=== PATIENT | female | born 1995 | race Caucasian/White ===

== ENCOUNTER 2017-10-11 20:49 | Emergency (ER) | payer MEDICAID | END 2017-10-11 22:08 | disposition home or self-care (01) | LOC: E/R 22:08 | DX: J02.9 Acute pharyngitis, unspecified (principal); J04.0 Acute laryngitis; R06.2 Wheezing | CPT/HCPCS: 99284; Z7502 ==

== ENCOUNTER 2017-10-15 22:31 | Emergency (ER) | payer MEDICAID ==
[2017-10-16] MEDS: ACETAMINOPHEN 325 MG TAB PO (02:11)
[2017-10-16] MEDS: KETOROLAC 60 MG INJ IM (02:25)
== END 2017-10-16 02:38 | disposition home or self-care (01) ==
LOC: FTE 22:31
DX: J20.9 Acute bronchitis, unspecified (principal)
CPT/HCPCS: 81025; 96372; 99284-25